=== PATIENT | male | born 1965 | race African-American/Black ===

== ENCOUNTER 2017-01-01 07:45 | Day surgery (SDC) | payer OTHER ==
[2016-12-28 13:42] VITALS: BMI 25.4
[2017-01-01] MEDS ORDERED: MIDAZOLAM HCL 2 MG/2 ML SINGLE DOSE VIAL ONE (08:20)
[2017-01-01] MEDS ORDERED: PROPOFOL 20 ML ONE ×3 (08:20→10:12)
[2017-01-01] MEDS ORDERED: VANCOMYCIN 1,000 MG VIAL (RESTRICTED TO ID ONLY) ONE (09:05)
--- NOTE | 2017-01-01 09:21 | HP ---
Admitting History and Physical - Admission Chief Complaint: Left lower extremity pain. History of Present Illness: 51 yo M with history of left knee multiligamentous knee injury and repair, s/p left knee replacement, presents with 8 months of worsening left lower extremity/ knee pain. He presents for a planned peroneal nerve decompression and hardware removal with Dr. Sanchez. History Source: Patient Limitations to Obtaining History: No Limitations - Past Medical History Cardiovascular: Yes: Hyperlipdemia Musculoskeletal: Yes: Other (hx multiligamentous knee injury) - Past Surgical History Past Surgical History: Yes: Joint Replacement Additional Past Surgical History: repair multiligamentous left knee injury bilateral knees, multiple revisions left knee - Smoking History Smoking history: Current some day smoker Have you smoked in the past 12 months: Yes - Alcohol/Substance Use Hx Alcohol Use: Yes (OCCASUIONALLY) Home Medications - Allergies Allergies/Adverse Reactions: Allergies Allergy/AdvReac Type Severity Reaction Status Date / Time cephalexin Allergy Severe SWELLING, Verified 12/28/16 13:46 ITCHING naproxen Allergy Severe Swelling Verified 12/28/16 13:46 Penicillins Allergy Severe SWELLING, Verified 12/28/16 13:46 ITCHING prochlorperazine Allergy Severe SEIZURES Verified 12/28/16 13:42 [From Compazine] prochlorperazine edisylate Allergy Severe SEIZURES Verified 12/28/16 13:42 [From Compazine] prochlorperazine maleate Allergy Severe SEIZURES Verified 12/28/16 13:42 [From Compazine] ciprofloxacin [From Cipro] Allergy Intermediate Hives Verified 01/01/17 08:12 ciprofloxacin HCl Allergy Intermediate Hives Verified 01/01/17 08:12 [From Cipro] BEE STINGS Allergy Severe RESPIRATORY Uncoded 12/28/16 13:47 DISTRESS FRESH CHEERIES/PEACHES Allergy Severe RESOPIRATORY Uncoded 12/28/16 13:47 DISTRESS - Home Medications Home Medications: Ambulatory Orders Albuterol Sulfate Inhaler - [Ventolin Hfa Inhaler -] 1 - 2 inh PO QID PRN Oxycodone HCl/Acetaminophen [Percocet 5-325 mg Tablet] 1 tab PO Q6H PRN Salmeterol/Fluticasone [Advair 500Mcg/50Mcg -] 1 inh IN BID 12/28/16 Review of Systems - Review of Systems Constitutional: denies: Chills, Fever HENT: denies: Throat Pain Cardiovascular: denies: Chest Pain, Shortness of Breath Respiratory: denies: Cough, SOB Gastrointestinal: denies: Abdominal Pain, Nausea, Vomiting Genitourinary: denies: Burning, Dysuria Musculoskeletal: reports: Extremity Pain (LLE) Integumentary: denies: Rash Neurological: denies: Dizziness, Headache Hematology/Lymphatic: denies: Easily Bruised, Excessive Bleeding Physical Examination Vital Signs: Vital Signs Temperature 97.8 F 01/01/17 08:14 Pulse Rate 78 01/01/17 08:14 Respiratory Rate 18 01/01/17 08:14 Blood Pressure 114/73 01/01/17 08:14 O2 Sat by Pulse Oximetry (%) 97 01/01/17 08:14 Constitutional: Yes: Well Nourished, No Distress, Calm HENT: Yes: Atraumatic, Normocephalic Cardiovascular: Yes: Regular Rate and Rhythm Respiratory: Yes: Regular, CTA Bilaterally Gastrointestinal: Yes: WNL, Soft Extremities: Yes: Other (pain left knee, scars bilat knees, lateral left leg) Integumentary: Yes: WNL Neurological: Yes: Alert, Oriented
[2017-01-01] MEDS ORDERED: BUPIVACAINE HCL/EPINEPHRINE/PF 30 ML VIAL IJ ONE (09:26)
[2017-01-01] MEDS ORDERED: ONDANSETRON 4 MG/2 ML VIAL ONE (09:50)
[2017-01-01] MEDS ORDERED: DEXAMETHASONE SOD PHOSPHATE 4 MG/1 ML VIAL ONE (09:52)
[2017-01-01] MEDS ORDERED: BUPIVACAINE 0.25% /EPI 1:200,000 10 ML VIAL INF ONE (10:03)
--- NOTE | 2017-01-01 10:15 | DS ---
Physical Examination Vital Signs: Vital Signs Temperature 97.8 F 01/01/17 08:14 Pulse Rate 78 01/01/17 08:14 Respiratory Rate 18 01/01/17 08:14 Blood Pressure 114/73 01/01/17 08:14 O2 Sat by Pulse Oximetry (%) 97 01/01/17 08:14 Discharge Summary Reason For Visit: LEFT PERONEAL NERVE COMPRESSION, PAINFUL HARDWARE Condition: Good - Instructions Diet, Activity, Other Instructions: You may put as much weight on the leg as you like. You may bend your knee as much as you like. You may shower and get the incision wet in 2-3 days. Keep an krystal bandage or large band aids over the incision after shower Do not pick or peel the glue off of the incision. Disposition: HOME - Home Medications Comprehensive Discharge Medication List: Ambulatory Orders Albuterol Sulfate Inhaler - [Ventolin Hfa Inhaler -] 1 - 2 inh PO QID PRN Oxycodone HCl/Acetaminophen [Percocet 5-325 mg Tablet] 1 tab PO Q6H PRN Salmeterol/Fluticasone [Advair 500Mcg/50Mcg -] 1 inh IN BID 12/28/16
--- NOTE | 2017-01-01 10:15 | OP ---
Operative Note - Note: Operative Date: 01/01/17 Pre-Operative Diagnosis: Left leg painful hardware. Left leg peroneal nerve compression Operation: SANDRO, left knee. Peroneal nerve decompression Post-Operative Diagnosis: Same as Pre-op Surgeon: Keenan Sanchez Anesthesia: General
[2017-01-01] MEDS ORDERED: ePHEDrine SULFATE 50 MG/1 ML AMPULE ONE (10:24)
[2017-01-01] MEDS ORDERED: ONDANSETRON 4 MG/2 ML VIAL IVPUSH ONE (10:55)
[2017-01-01] MEDS ORDERED: LACTATED RINGERS SOLUTION 1,000 ML IV SCH (11:15)
[2017-01-01] MEDS ORDERED: ONDANSETRON 4 MG/2 ML VIAL IVPUSH PRN (11:16)
[2017-01-01] MEDS ORDERED: oxyCODONE HCL 5 MG TABLET PO PRN (11:16)
[2017-01-01 12:17] VITALS: TEMP 98.2
[2017-01-01] MEDS ORDERED: oxyCODONE HCL 5 MG TABLET ONE (12:19)
--- NOTE | 2017-01-01 14:36 | SURG ---
Surgery Scout Note Scout: Yee Garces PA-C Date of Service: 01/01/17 Diagnosis: Left leg painful hardware. Left leg peroneal nerve compression Procedure: Removal of hardware, left knee. Peroneal nerve decompression I was present for the entirety of the operative procedure. For further detail, please refer to operative report. Visit type - Case Type Case Type: Scheduled Admission - New patient This patient is new to me today: Yes Date on this admission: 01/01/17
[2017-01-01 15:28] VITALS: BP 126/86; PULSE 76
--- NOTE | 2017-01-06 15:11 | PATH ---
Surgical Pathology Report Patient Name: GEMA DESIR Med. Rec. #: [id number] /Age/Gender: 1965 (Age: 51) / M Account: [id number] Location: [facility] AMBULATORY Taken: 01/01/2017 Received: 01/01/2017 Reported: 01/06/2017 Physicians: Keenan Sanchez M.D. Specimen(s) Received SCREW AND WASHER LEFT LATERAL FEMUR Clinical History Left peroneal nerve compression Painful hardware Final Diagnosis SCREW AND WASHER FROM LEFT LATERAL FEMUR, REMOVAL: HARDWARE, DESCRIBED (GROSS EXAMINATION ONLY). Electronically Signed Marisela Ames M.D. Gross Description Received fresh, labeled "screw and washer from left lateral femur," is a 1.4 cm in diameter guo metallic washer. Also received within the same container is a 7 cm in length guo metallic screw. No soft tissue is present. No sections are submitted, gross only. 01/04/2017 saudi01/04/2017
== END 2017-01-01 14:00 | disposition home or self-care (01) ==
LOC: FASU 07:45
PROVIDERS: ATTEND Orthopaedic Surgery
PROC: 01NH0ZZ Release Peroneal Nerve, Open Approach (ICD-10-PCS; principal; 2017-01-01 09:00)
PROC: 0SPD04Z Removal of Internal Fixation Device from Left Knee Joint, Open Approach (ICD-10-PCS; 2017-01-01 09:00)
DX: G57.32 Lesion of lateral popliteal nerve, left lower limb (principal); E78.5 Hyperlipidemia, unspecified; T84.84XA Pain due to internal orthopedic prosthetic devices, implants and grafts, initial encounter; Y83.8 Other surgical procedures as the cause of abnormal reaction of the patient, or of later complication, without mention of misadventure at the time of the procedure
CPT/HCPCS: 88300-TC; 94760